=== PATIENT | male | born 1990 | race Caucasian/White ===

== ENCOUNTER 2018-07-11 08:45 | Emergency (ER) | payer OTHER ==
[~2018-07-11] VITALS: Ht 180.3 cm; Wt 81.0 kg
[2018-07-11 08:49] VITALS: BP 133/76
[2018-07-11] MEDS ORDERED: CIPR2.5D18 EACHEYE (09:39)
== END 2018-07-11 09:59 | disposition home or self-care (01) ==
LOC: ER 08:45
DX: H10.9 Unspecified conjunctivitis (principal); F12.90 Cannabis use, unspecified, uncomplicated; Z79.2 Long term (current) use of antibiotics
CPT/HCPCS: 99283

== ENCOUNTER 2020-09-29 09:47 | Emergency (ER) | payer MEDICAID ==
[~2020-09-29] VITALS: Ht 180.3 cm; Wt 94.1 kg
[2020-09-29] MEDS ORDERED: diphenhydrAMINE 50 mg/ml inj IV ONE (09:50)
[2020-09-29] MEDS ORDERED: normal saline 1000ML IV soln IV ONE (09:50)
--- NOTE | 2020-09-29 10:04 | NUR ---
pt placed on seizure precautions.
[2020-09-29] MEDS ORDERED: propranolol LA 80mg capsule (long-acting) PO ONE (10:10)
[2020-09-29 10:14] LABS: BASOPHILS # (AUTO) 0.1 X10'3 (0-0.2); BASOPHILS % (AUTO) 0.5 % (0-1); EOSINOPHILS % (AUTO) 0 % (0-6); HEMATOCRIT 51.8 % (42.0-52.0); HEMOGLOBIN 17.7 g/dl (14.0-17.9); LYMPHOCYTES # (AUTO) 1.1 X10'3 (1.1-4.8); LYMPHOCYTES % (AUTO) 5.3 % (21-51); MEAN CORPUSCULAR HEMOGLOBIN 30.8 PG (27.0-31.0); MEAN CORPUSCULAR HGB CONC 34.2 g/dL (33.0-36.5); MEAN CORPUSCULAR VOLUME 90.1 FL (78-98); MEAN PLATELET VOLUME 7.9 FL (7.4-10.4); MONOCYTES # (AUTO) 1.5 X10'3 (0-0.9); MONOCYTES % (AUTO) 7.6 % (2-12); NEUTROPHILS # (AUTO) 17.2 X10'3 (1.8-7.7); NEUTROPHILS % (AUTO) 86.6 % (42-75); PLATELET COUNT 405 X10'3 (140-440); RED BLOOD COUNT 5.76 X10'6 (4.70-6.10); RED CELL DISTRIBUTION WIDTH 13.7 % (11.5-14.5); WHITE BLOOD COUNT 19.8 X10'3 (4.5-11.0)
[2020-09-29] MEDS ORDERED: metoprolol tartrate 1mg/ml inj IV ONE ×2 (10:25→10:45)
[2020-09-29 10:30] LABS: ALANINE AMINOTRANSFERASE 102 U/L (12-78); ALBUMIN 5.1 G/DL (3.4-5.0); ALKALINE PHOSPHATASE 126 IU/L (46-116); ANION GAP 16 (8-16); ASPARTATE AMINO TRANSFERASE 66 U/L (10-37); BILIRUBIN,TOTAL 1.5 MG/DL (0.1-1.0); BLOOD UREA NITROGEN 26 MG/DL (7-18); BUN/CREATININE RATIO 12.1 (5.4-32.0); CALCIUM 10.4 MG/DL (8.5-10.1); CHLORIDE 101 MMOL/L (99-107); CREATININE 2.15 MG/DL (0.60-1.10); GLUCOSE 102 MG/DL (70-104); POTASSIUM 3.7 MMOL/L (3.5-5.1); SODIUM 137 MMOL/L (135-145); TOTAL CARBON DIOXIDE 19.7 MMOL/L (24-32); TOTAL PROTEIN 10.1 G/DL (6.4-8.2); eGFR 36 ML/MIN
[2020-09-29 10:40] LABS: ETHANOL < 0.010 GM/DL (0.0-0.010)
[2020-09-29] MEDS ORDERED: proCHLORperazine 10 MG/2 ml inj IV ONE (10:50)
[2020-09-29] MEDS ORDERED: LORazepam 2 mg/ml vial IV ONE (10:55)
--- NOTE | 2020-09-29 11:31 | NUR ---
mother at bedside
[2020-09-29 12:22] VITALS: BP 136/109
--- NOTE | 2020-09-29 12:23 | NUR ---
pt sleeping on gurney. no shaking or spasming noted at this time. Paul talking with pt's mother at bedside.
--- NOTE | 2020-09-29 12:30 | NUR ---
pt looks much better than when he arrived. he is not diaphoretic any more and no more spasms noted in his muscles. pt resting comfortably on bed and breathing well.
== END 2020-09-29 12:40 | disposition home or self-care (01) ==
LOC: ER 09:47
DX: G25.1 Drug-induced tremor (principal); T43.625A Adverse effect of amphetamines, initial encounter; N17.9 Acute kidney failure, unspecified; R07.89 Other chest pain; F15.90 Other stimulant use, unspecified, uncomplicated; F12.90 Cannabis use, unspecified, uncomplicated; Y92.89 Other specified places as the place of occurrence of the external cause
CPT/HCPCS: 36415; 71045; 80053; 80320; 84145; 84443; 84484; 85025; 93005; 96361; 96374; 96375; 99285; J0780; J1200; J2060; J7030; J3490

== ENCOUNTER 2020-10-03 08:57 | Emergency (ER) | payer MEDICAID ==
[~2020-10-03] VITALS: Ht 180.3 cm; Wt 94.0 kg
[2020-10-03 09:02] VITALS: BP 142/97
[2020-10-03 10:25] LABS: ALANINE AMINOTRANSFERASE 97 U/L (12-78); ALBUMIN 4.1 G/DL (3.4-5.0); ALKALINE PHOSPHATASE 104 IU/L (46-116); ANION GAP 7 (8-16); ASPARTATE AMINO TRANSFERASE 33 U/L (10-37); BILIRUBIN,TOTAL 0.3 MG/DL (0.1-1.0); BLOOD UREA NITROGEN 13 MG/DL (7-18); BUN/CREATININE RATIO 15.9 (5.4-32.0); CALCIUM 9.4 MG/DL (8.5-10.1); CHLORIDE 104 MMOL/L (99-107); CREATININE 0.82 MG/DL (0.60-1.10); GLUCOSE 105 MG/DL (70-104); POTASSIUM 4.6 MMOL/L (3.5-5.1); SODIUM 141 MMOL/L (135-145); TOTAL CARBON DIOXIDE 29.7 MMOL/L (24-32); TOTAL PROTEIN 8.1 G/DL (6.4-8.2); eGFR > 90 ML/MIN
== END 2020-10-03 10:39 | disposition home or self-care (01) ==
LOC: ER 08:57
DX: Z02.89 Encounter for other administrative examinations (principal); F41.9 Anxiety disorder, unspecified; F12.90 Cannabis use, unspecified, uncomplicated; F15.90 Other stimulant use, unspecified, uncomplicated; R00.0 Tachycardia, unspecified; I10 Essential (primary) hypertension; N17.9 Acute kidney failure, unspecified
CPT/HCPCS: 36415; 80053; 99283

== ENCOUNTER 2021-11-21 16:12 | Emergency (ER) | payer MEDICAID ==
[~2021-11-21] VITALS: Ht 185.4 cm; Wt 106.0 kg
--- NOTE | 2021-11-21 17:59 | NUR ---
Tatyana mahan in [facility] - 11/22/21 at 0639 by MONSE MOVED TO ER 4
[2021-11-21 18:09] LABS: BASOPHILS # (AUTO) 0.1 X10'3 (0-0.2); BASOPHILS % (AUTO) 0.9 % (0-1); EOSINOPHILS % (AUTO) 0.1 % (0-6); HEMATOCRIT 45.5 % (42.0-52.0); HEMOGLOBIN 15.5 g/dl (14.0-17.9); LYMPHOCYTES # (AUTO) 2.4 X10'3 (1.1-4.8); LYMPHOCYTES % (AUTO) 21.4 % (21-51); MEAN CORPUSCULAR HEMOGLOBIN 29.4 PG (27.0-31.0); MEAN CORPUSCULAR HGB CONC 34.1 g/dL (33.0-36.5); MEAN CORPUSCULAR VOLUME 86.3 FL (78-98); MEAN PLATELET VOLUME 7.8 FL (7.4-10.4); MONOCYTES # (AUTO) 1.1 X10'3 (0-0.9); MONOCYTES % (AUTO) 10.2 % (2-12); NEUTROPHILS # (AUTO) 7.6 X10'3 (1.8-7.7); NEUTROPHILS % (AUTO) 67.4 % (42-75); PLATELET COUNT 319 X10'3 (140-440); RED BLOOD COUNT 5.28 X10'6 (4.70-6.10); RED CELL DISTRIBUTION WIDTH 13.8 % (11.5-14.5); WHITE BLOOD COUNT 11.3 X10'3 (4.5-11.0)
[2021-11-21] MEDS ORDERED: LORazepam 2 mg/ml vial IM ONE (18:20)
[2021-11-21 18:24] LABS: ALANINE AMINOTRANSFERASE 120 U/L (12-78); ALBUMIN 4.5 G/DL (3.4-5.0); ALKALINE PHOSPHATASE 84 IU/L (46-116); ANION GAP 10 (8-16); ASPARTATE AMINO TRANSFERASE 43 U/L (10-37); BILIRUBIN,TOTAL 0.9 MG/DL (0.1-1.0); BLOOD UREA NITROGEN 7 MG/DL (7-18); BUN/CREATININE RATIO 5.8 (5.4-32.0); CALCIUM 9.4 MG/DL (8.5-10.1); CHLORIDE 107 MMOL/L (99-107); CREATININE 1.21 MG/DL (0.60-1.10); GLUCOSE 131 MG/DL (70-104); SODIUM 141 MMOL/L (135-145); TOTAL PROTEIN 9.1 G/DL (6.4-8.2); eGFR 69 ML/MIN
[2021-11-21 18:42] LABS: ETHANOL < 0.010 GM/DL (0.0-0.010); POTASSIUM 2.8 MMOL/L (3.5-5.1)
--- NOTE | 2021-11-21 19:00 | NUR ---
Patient continues to be restless and impulsive after IM Ativan, I have a tech at the door watching him and security has had contact w/him several times. I advised him he is on a mental health hold and will be staying until [facility] evaluates him. We will continue to monitor.
--- NOTE | 2021-11-21 20:34 | NUR ---
Per Dr. Danny vega to order potassium protocol
[2021-11-21] MEDS ORDERED: POTASSIUM BICARB 20meq eff tab 20 MEQ TABLET.EFF PO PRN (20:35)
[2021-11-21] MEDS ORDERED: magnesium 4gm in 100ml NS 100 ML IV PRN (20:35)
[2021-11-21] MEDS ORDERED: potassium CL 10mEq/100ml bag 100 ML IV PRN (20:35)
[2021-11-21] MEDS ORDERED: magnesium 2GM in 50ml NS 50 ML IV PRN (20:35)
[2021-11-21] MEDS ORDERED: magnesium Cl slow-release 64mg tablet PO PRN (20:35)
[2021-11-21] MEDS: POTASSIUM BICARB 20meq eff tab 20 MEQ TABLET.EFF PO PRN (21:12)
--- NOTE | 2021-11-21 21:14 | NUR ---
Patient having visual and audatory hallucinations, I will advised MD
--- NOTE | 2021-11-21 21:40 | NUR ---
Pt is pacing in room and stated that we want him to get a liver transplant. RN told him this is not true and that he is healthy and he said "oh okay" and sat back on bed.
[2021-11-21 22:28] LABS: URINE AMPHETAMINE SCREEN POSITIVE (Neg); URINE BARBITUATE SCREEN NEGATIVE (Neg); URINE BENZODIAZEPINES SCREEN POSITIVE (Neg); URINE CANNABINOID SCREEN NEGATIVE (Neg); URINE COCAINE SCREEN NEGATIVE (Neg); URINE METHADONE SCREEN NEGATIVE (Neg); URINE OPIATE SCREEN NEGATIVE (Neg); URINE PHENCYCLIDINE SCREEN NEGATIVE (Neg)
--- NOTE | 2021-11-21 22:57 | NUR ---
The patient moved to bed 20 from the main ER. He is polite and pleasant. He is watching staff carefully. HR 122 and his BP was 139/110. He was asked if he felt he could sleep and he stated, "as soon as this is over" and when asked what he meant he replied, "the butt whooping I'm going to get" Discussed patient presentation with Dr. Delgado and order received.
[2021-11-21 22:58] LABS: CLARITY,URINE SLIGHTLY CLOUDY (Clear); COLOR,URINE AMBER (Yellow); GLUCOSE, URINE NEGATIVE (Neg); KETONES,URINE TRACE mg/dl (Neg); LEUKOCYTE ESTERASE ,URINE NEGATIVE (Neg); NITRITES, URINE NEGATIVE (Neg); OCCULT BLOOD,URINE NEGATIVE (Neg); PROTEIN,URINE 100 mg/dl (Neg); UA COLLECTION TYPE CLN CATCH MIDSTREAM
[2021-11-21] MEDS ORDERED: quetiapine 100mg tablet PO ONE ×2 (23:00→23:55)
--- NOTE | 2021-11-21 23:03 | NUR ---
Medication given to the patient and he was encouraged to rest. He presents as paranoid. He reports he has not slept in two days.
[2021-11-21 23:08] LABS: BACTERIA,URINE NONE SEEN /HPF (Neg); MUCUS STRANDS MANY /LPF (Neg); RBC,URINE NONE SEEN /HPF (0-2); SPERM MODERATE /HPF (NEGATIVE); SQUAMOUS EPITHELIAL CELL,UR NONE SEEN /LPF (FEW); WBC,URINE 0-4 /HPF (0-4)
[2021-11-21] MEDS ORDERED: NO HOME MEDS (23:19)
--- NOTE | 2021-11-21 23:19 | NUR ---
The patient is whispering to himself.
--- NOTE | 2021-11-22 00:13 | NUR ---
The patient crying and upset. He appears to be responding to A/V hallucinations. Dr. Garcia made aware and orders received.
--- NOTE | 2021-11-22 01:03 | NUR ---
The patient appears to be sleeping but is restless
--- NOTE | 2021-11-22 01:06 | NUR ---
PACKET SENT TO [facility]
--- NOTE | 2021-11-22 01:50 | NUR ---
The patient appears to be sleeping
--- NOTE | 2021-11-22 02:48 | NUR ---
The patient appears to be sleeping
--- NOTE | 2021-11-22 04:33 | NUR ---
The patient appears to be sleeping
[2021-11-22] MEDS: POTASSIUM BICARB 20meq eff tab 20 MEQ TABLET.EFF PO PRN ×2 (04:57→21:15)
--- NOTE | 2021-11-22 05:01 | NUR ---
The patient awakened for vital signs which have improved. He also was given K+ replacement
[2021-11-22] MEDS ORDERED: diphenhydrAMINE 25mg capsule PO ONE (05:55)
[2021-11-22] MEDS ORDERED: LORazepam 1 MG tablet PO STA (05:55)
[2021-11-22] MEDS ORDERED: haloperidol 5mg tablet PO STA (05:55)
[2021-11-22] MEDS ORDERED: haloperidol lactate 5mg/ml inj IM ONE (06:45)
[2021-11-22] MEDS ORDERED: LORazepam 2 mg/ml vial IM ONE ×2 (06:45→19:45)
--- NOTE | 2021-11-22 06:45 | NUR ---
Assmed patient care at this time. Patient is restless and agitated. Security and staff at bedside. Patient to be medicated for patient's safety.
[2021-11-22] MEDS ORDERED: LORazepam 2 mg/ml vial ONE (06:46)
[2021-11-22] MEDS: K and/or MAG REPLACEMENT MC SCH ×2 (08:00→19:56)
--- NOTE | 2021-11-22 08:00 | NUR ---
Unable to obtain potassium at this time due to patient being sedated for psychotic behavior.
--- NOTE | 2021-11-22 08:00 | NUR ---
Patient is sleeping comfortably on stretcher.
--- NOTE | 2021-11-22 09:00 | NUR ---
Patient is sleeping comfortably on stretcher.
--- NOTE | 2021-11-22 10:00 | NUR ---
Patient is sleeping comfortably on stretcher.
--- NOTE | 2021-11-22 11:00 | NUR ---
Patient is sleeping comfortably on stretcher.
--- NOTE | 2021-11-22 12:00 | NUR ---
Patient is sleeping comfortably on stretcher.
--- NOTE | 2021-11-22 13:00 | NUR ---
Patient is sleeping comfortably on stretcher.
--- NOTE | 2021-11-22 14:00 | NUR ---
Patient is sleeping comfortably on stretcher.
--- NOTE | 2021-11-22 14:34 | NUR ---
Patient is awake, drank water and ambulated to restroom.
--- NOTE | 2021-11-22 15:00 | NUR ---
Mental health provider at [facility].
--- NOTE | 2021-11-22 16:00 | NUR ---
Patient appears to be sleeping.
--- NOTE | 2021-11-22 17:00 | NUR ---
Patient appears to be sleeping.
[2021-11-22] MEDS ORDERED: diphenhydrAMINE 50 mg/ml inj ONE (19:37)
[2021-11-22] MEDS ORDERED: haloperidol lactate 5mg/ml inj ONE (19:37)
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
--- NOTE | 2021-11-22 20:51 | NUR ---
, THOMAS, WANTS TO BE NOTIFED WHEN HE IS TRANSFERRED.
--- NOTE | 2021-11-22 20:52 | NUR ---
The patient is mumbling and talking to himself but remains in bed.
[2021-11-22 21:05] LABS: ALANINE AMINOTRANSFERASE 102 U/L (12-78); ALBUMIN 3.6 G/DL (3.4-5.0); ALBUMIN/GLOBULIN RATIO 0.9 (1.1-1.5); ALKALINE PHOSPHATASE 76 IU/L (46-116); ANION GAP 8 (8-16); ASPARTATE AMINO TRANSFERASE 61 U/L (10-37); BILIRUBIN,TOTAL 0.8 MG/DL (0.1-1.0); BLOOD UREA NITROGEN 11 MG/DL (7-18); BUN/CREATININE RATIO 11.2 (5.4-32.0); CALCIUM 8.7 MG/DL (8.5-10.1); CHLORIDE 105 MMOL/L (99-107); CREATININE 0.98 MG/DL (0.60-1.10); GLUCOSE 89 MG/DL (70-104); SODIUM 141 MMOL/L (135-145); TOTAL CARBON DIOXIDE 27.7 MMOL/L (24-32); TOTAL PROTEIN 7.6 G/DL (6.4-8.2); eGFR 88 ML/MIN
[2021-11-22 21:08] LABS: POTASSIUM 2.9 MMOL/L (3.5-5.1)
--- NOTE | 2021-11-22 21:10 | NUR ---
Received call from lab that his K was 2.9. Dr Delgado made aware and replacement given per orders.
[2021-11-22 21:58] LABS: MAGNESIUM 2.1 MG/DL (1.5-2.4)
--- NOTE | 2021-11-22 22:21 | NUR ---
The patient appears to be sleeping
--- NOTE | 2021-11-22 23:42 | NUR ---
The patient appears to be sleeping
--- NOTE | 2021-11-23 01:04 | NUR ---
The patient appears to be sleeping
--- NOTE | 2021-11-23 02:11 | NUR ---
The patient appears to be sleeping
--- NOTE | 2021-11-23 03:49 | NUR ---
The patient appears to be sleeping
[2021-11-23] MEDS: POTASSIUM BICARB 20meq eff tab 20 MEQ TABLET.EFF PO PRN (04:28)
[2021-11-23 04:34] VITALS: BP 101/84
--- NOTE | 2021-11-23 04:41 | NUR ---
The patient awake briefly to drink some water and he was given K supplement.
--- NOTE | 2021-11-23 06:34 | NUR ---
Assumed patient care at this time.
--- NOTE | 2021-11-23 06:35 | NUR ---
Patient resting comfrotably on stretcher.
--- NOTE | 2021-11-23 07:00 | NUR ---
Patient appears to be sleeping.
--- NOTE | 2021-11-23 08:00 | NUR ---
Patient appears ti be sleeping.
[2021-11-23] MEDS: K and/or MAG REPLACEMENT MC SCH (08:45)
[2021-11-23 08:55] LABS: ALANINE AMINOTRANSFERASE 104 U/L (12-78); ALBUMIN 3.6 G/DL (3.4-5.0); ALBUMIN/GLOBULIN RATIO 0.9 (1.1-1.5); ALKALINE PHOSPHATASE 74 IU/L (46-116); ANION GAP 9 (8-16); ASPARTATE AMINO TRANSFERASE 64 U/L (10-37); BILIRUBIN,TOTAL 0.9 MG/DL (0.1-1.0); BLOOD UREA NITROGEN 13 MG/DL (7-18); BUN/CREATININE RATIO 15.9 (5.4-32.0); CALCIUM 8.6 MG/DL (8.5-10.1); CHLORIDE 104 MMOL/L (99-107); CREATININE 0.82 MG/DL (0.60-1.10); GLUCOSE 104 MG/DL (70-104); POTASSIUM 3.4 MMOL/L (3.5-5.1); SODIUM 140 MMOL/L (135-145); TOTAL CARBON DIOXIDE 27.4 MMOL/L (24-32); TOTAL PROTEIN 7.5 G/DL (6.4-8.2); eGFR > 90 ML/MIN
--- NOTE | 2021-11-23 09:10 | NUR ---
Patient ate breakfast.
--- NOTE | 2021-11-23 10:14 | NUR ---
Patient appears to be sleeping.
--- NOTE | 2021-11-23 11:00 | NUR ---
Patient appears to be sleeping.
--- NOTE | 2021-11-23 12:10 | NUR ---
Patient appears to be sleeping.
--- NOTE | 2021-11-23 15:40 | NUR ---
pt speaking with family on phone. plan is to discharge home, pt states he will walk. he [place] one block away. per ELEONORA, he is ok to walk home.
== END 2021-11-23 15:46 | disposition home or self-care (01) ==
LOC: ER 16:13
DX: F20.9 Schizophrenia, unspecified (principal); Z20.822 Contact with and (suspected) exposure to COVID-19; F15.10 Other stimulant abuse, uncomplicated; F41.9 Anxiety disorder, unspecified; F12.90 Cannabis use, unspecified, uncomplicated
CPT/HCPCS: 36415; 80053; 80305; 80320; 81001; 83735; 84443; 85025; 87635; 96372; 99285; C9803; J1200; J1630; J2060; Q0163

== ENCOUNTER 2024-12-15 09:35 | Emergency (ER) | payer MEDICAID ==
[~2024-12-15] VITALS: Ht 180.3 cm; Wt 103.6 kg
[~2024-12-15 09:35] MED LIST: NO HOME MEDS
--- NOTE | 2024-12-15 09:51 | ELECTROCARDIOGRAPH REPORT ---
[facility] Test Date: 2024-12-15 Test Time: 09:48:19 Pat Name: RODERICK FLOOD Department: [facility]-ER Patient ID: [facility]-[id number] Room: Gender: M Windows Admin: : [id number] Requested By: RICK MEJIA Order Number: [id number] Reading MD: Measurements Intervals [place] Rate: 90 P: 51 FL: 211 QRS: -33 QRSD: 98 T: 59 QT: 406 QTc: 497 Interpretive Statements Sinus rhythm Prolonged FL interval Left axis deviation Abnormal R-wave progression, early transition Borderline prolonged QT interval Please click the below link to view image of tracing.
--- NOTE | 2024-12-15 10:09 | RADIOLOGY REPORT ---
CHEST RADIOGRAPH Indication: CP Technique: Single frontal view of the chest was obtained COMPARISON: None FINDINGS: Lines and Tubes: None Lungs: Clear Pleura: No effusion. No pneumothorax. Cardiomediastinal contours: Unremarkable Bones: Unremarkable IMPRESSION: 1. No acute disease.
--- NOTE | 2024-12-15 10:10 | Physician Documentation ---
History of Present Illness ~ Chief Complaint: Shortness of Breath Stated Complaint: SOB CP Time Seen by MD: 09:56 Primary Medical Doctor: none Source: patient Mode of Arrival: Ambulatory Exam Limitations: no limitations HPI Otherwise healthy male in with shortness of breath that woke him up around 1:00 a.m.. He does have some deep chest pressure that rates it about a 4/10. On occasion he gets shortness of breath but it usually goes away. He has never had the chest pain before. He also reports having a cough since he woke up. No known sick contacts. Nonsmoker. No drug use or alcohol use. No history of asthma. Medication Reconciliation Allergies: Coded Allergies: No Known Allergies (Unverified , 07/11/18) Scheduled Azithromycin (Azithromycin), 1 TAB PO UD Miscellaneous Medications Home Med List (No Home Medications), (Reported) Past Medical History Past Medical History: *RENAL/*, Anxiety Past Surgical History: noncontributory Alcohol Use: None Drug Use: marijuana, methamphetamine Lives with: Family Lives In: Home Occupation: employed Review of Systems All Other Systems at this time: Reviewed and Negative Physical Exam Vital Signs: Temperature: 97.6, Source: Temporal, Heart Rate: 90, Respiratory Rate: 17, BP: 153/111, Pulse Oximetry: 95, Weight: 103.600 General Appearance: alert Neck: normal inspection EENT: normal ENT inspection Respiratory: other (Mild wheezing throughout) Chest: no accessory muscle use Cardiovascular: regular rate, rhythm, no edema Gastrointestinal: non-tender Extremities: normal inspection Skin: normal color, warm/dry Neurologic: oriented x4 Psychiatric: appropriate Progress Results/Orders Results/Orders Orders - RICK MEJIA MD Chest,Single View (12/15/24 09:35) Monitor (12/15/24 09:35) Saline Lock (12/15/24 09:35) Oxygen (12/15/24 09:35) Covid19 Binax Poc Result Entry (12/15/24 10:01) Completed Orders - RICK MEJIA MD Chest,Single View (12/15/24 09:35) Cbc/Diff (12/15/24 09:35) BMP (12/15/24 09:35) PBNP (12/15/24 09:35) Electrocardiogram (12/15/24 09:35) Hs Troponin I W Calculations (12/15/24 09:35) Hs Troponin I W Calculations (12/15/24 11:35) D-Dimer (12/15/24 10:10) Ipratropium/Albuterol Nebule (Ipratrop/A (12/15/24 10:15) Pt Inr (12/15/24 10:01) Iohexol 350mg/Ml 100ml (Omnipaque 350mg/ (12/15/24 11:48) Vital Signs 12/15/24 12/15/24 12/15/24 12/15/24 09:42 09:58 10:45 10:49 Temp 97.6 Pulse 90 84 90 Resp 17 16 22 B/P (MAP) 153/111 133/95 (108) Pulse Ox 95 98 95 O2 Delivery Room Air* O2 Flow Rate 0 0 FiO2 21 12/15/24 12/15/24 12/15/24 10:56 11:45 12:32 Temp 98.2 Pulse 95 88 91 Resp 20 16 18 B/P (MAP) 146/103 (117) 144/98 Pulse Ox 100 99 94 O2 Delivery Room Air* O2 Flow Rate 0 0 FiO2 21 Laboratory Tests Test 12/15/24 10:01 12/15/24 10:08 12/15/24 11:31 White Blood Count 12.5 H Red Blood Count 5.07 Hemoglobin 14.8 Hematocrit 43.6 Mean Corpuscular Volume 86.1 Mean Corpuscular Hemoglobin 29.2 Mean Corpuscular Hemoglobin Concent 33.9 Red Cell Distribution Width 14.7 H Platelet Count 269 Mean Platelet Volume 7.8 Neutrophils (%) (Auto) 57.8 Lymphocytes (%) (Auto) 29.9 Monocytes (%) (Auto) 9.0 Eosinophils (%) (Auto) 2.4 Basophils (%) (Auto) 0.9 Neutrophils # (Auto) 7.2 Lymphocytes # (Auto) 3.7 Monocytes # (Auto) 1.1 H Eosinophils # (Auto) 0.3 Basophils # (Auto) 0.1 CBC Comment Prothrombin Time 11.2 INR International Normalized Ratio 1.1 D-Dimer 0.52 H D-Dimer Comment Coagulation Comments Sodium Level 137 Potassium Level 4.1 Chloride Level 100 Carbon Dioxide Level 28.6 Anion Gap 8 Blood Urea Nitrogen 10 Creatinine 0.72 Estimated GFR/1.73 m2 > 90 BUN/Creatinine Ratio 13.9 Glucose Level 106 H Calcium Level 9.5 Troponin I High Sensitivity 4 4 Pro-B-Type Natriuretic Peptide 38 Albumin 4.3 Chemistry Comments SARS-CoV-2 Antigen (Rapid) Negative Troponin I High Sens Percent Delta 0 Troponin I Hi Sens Absolute Change 0 Medical Decision Making Additional Infomation Patient in with shortness of breath. Did DuoNeb treatment and felt much better. Chest x-ray was read as normal by Radiology but I it felt like there was a possible right lower lobe pneumonia. Placing him on a Z-Derrick. COVID was negative. Labs unremarkable but D-dimer just slightly bumped. I discussed with the patient that I wanted to do a CT angiogram to rule out D-dimer but patient did not want to do this test. At warned him of the risks. Discharging home in good condition. He is to follow up if not improving or return here if new or worsening symptoms. Departure Impression: Primary Impression: Pneumonia Qualified Codes: J18.9 - Pneumonia, unspecified organism Condition: Improved Discharge Instructions: Community-Acquired Pneumonia, Adult, [id number] Additional Instructions: Follow up with your doctor if not improving in the next 7-10 days. Return if new or worsening symptoms. Referrals: NO PRIMARY CARE PROVIDER (PCP) Prescriptions Azithromycin (Azithromycin) 250 Mg Tablet 1 TAB PO UD for 5 Days, #6 TAB 2 the first day followed by 1 for days 2-5 Prov: RICK MEJIA MD 12/15/24 Education Educated: Patient Educated regarding: diagnosis, treatment, prognosis, need for follow up Signature Scribe Signature: No scribe Attestation: No scribe RICK MEJIA MD Dec 15, 2024 10:10
[2024-12-15 10:30] LABS: MEAN PLATELET VOLUME 7.8 FL (7.4-10.4); RED CELL DISTRIBUTION WIDTH 14.7 % (11.5-14.5)
[2024-12-15 10:42] LABS: CREATININE 0.72 MG/DL (0.60-1.10); PRO BRAIN NATRIURETIC PEPTIDE 38 PG/ML (0-125); TOTAL CARBON DIOXIDE 28.6 MMOL/L (24-32); eCRCL 151 ML/MIN; eGFR > 90 ML/MIN
[2024-12-15 10:46] LABS: INR 1.1 INR
[2024-12-15 10:49] VITALS: PULSE 90; RESP 22; O2SAT 95
[2024-12-15] MEDS: ipratropium/albuterol 3ml nebule NEB PRN (10:49)
[2024-12-15 10:56] VITALS: PULSE 95; RESP 20; O2SAT 100
[2024-12-15] MEDS ORDERED: AZIT250T82 PO (12:26)
[2024-12-15 12:32] VITALS: BP 144/98; PULSE 91; RESP 18; TEMP 98.2; O2SAT 94
== END 2024-12-15 12:34 | disposition home or self-care (01) ==
LOC: ER 09:35
DX: J18.9 Pneumonia, unspecified organism (principal); F12.90 Cannabis use, unspecified, uncomplicated; F15.90 Other stimulant use, unspecified, uncomplicated; F41.9 Anxiety disorder, unspecified; Z20.822 Contact with and (suspected) exposure to COVID-19
CPT/HCPCS: 36415; 71045; 80048; 83880; 84484; 85025; 85379; 85610; 87811; 93005; 94640; 99285; Q9967; 94760